=== PATIENT | female | born 1990 | race Two or more races ===

== ENCOUNTER 2019-07-12 08:47 | Emergency (ER) | payer MEDICAID ==
[~2019-07-12] VITALS: Ht 167.6 cm; Wt 129.0 kg
--- NOTE | 2019-07-12 09:15 | NUR ---
Patient from triage ambulatory with steady gait, reports onset of abdominal pain around 0800 sharp intermittent since this morning. Pain was so bad made her cry. Denies any discharge. AA&O with clear speech. Denies N/V/D
[2019-07-12] MEDS ORDERED: ONDANSETRON 2MG/ML, 2ML IVPush ONE (09:30)
[2019-07-12] MEDS ORDERED: SODIUM CHLORIDE FLUSH 10ML SYR IVF ONE (09:30)
[2019-07-12 09:44] LABS: BASOPHILS # (AUTO) 0.02 x10^3/uL (0-0.1); BASOPHILS % (AUTO) 0 % (0-1); EOSINOPHILS # (AUTO) 0.13 x10^3/uL (0-0.4); EOSINOPHILS % (AUTO) 2 % (1-7); LYMPHOCYTES # (AUTO) 1.77 x10^3/uL (1-3.4); LYMPHOCYTES % (AUTO) 19 % (22-44); MD NO; MEAN CORPUSCULAR HEMOGLOBIN 31.3 pg (27.0-34.8); MEAN CORPUSCULAR HGB CONC 33.6 g/dL (32.4-35.8); MEAN PLATELET VOLUME 9.7 fL (7.4-10.4); MONOCYTES % (AUTO) 6 % (2-9); NEUTROPHILS % (AUTO) 74 % (42-75); PLATELET COUNT 213 x10^3/uL (130-400); RED BLOOD COUNT 4.49 x10^6/uL (3.82-5.3); RED CELL DISTRIBUTION WIDTH 12.9 % (9.6-15.2)
--- NOTE | 2019-07-12 09:50 | NUR ---
Patient refused Zofran and IV access, ERP aware
[2019-07-12 09:55] LABS: ANION GAP 6 mmol/L (5-15); CALCIUM 8.4 mg/dL (8.5-10.1); CHLORIDE 110 mmol/L (98-107); CREATININE 1.01 mg/dL (0.55-1.02)
[2019-07-12 09:56] LABS: ALBUMIN 3.4 g/dL (3.4-5.0)
[2019-07-12 10:50] LABS: MICROSCOPIC INDICATED
--- NOTE | 2019-07-12 11:09 | NUR ---
Resting on gurney watching TV reports pain has improved. pending US
[2019-07-12 11:10] VITALS: BP 115/64
--- NOTE | 2019-07-12 12:20 | NUR ---
Informed patient need for a straight cath, educated patient on procedure and patient refused provider aware.
[2019-07-12 12:43] LABS: CLUE CELLS PRESENT (NONE SEEN); WET PREP WBCS FEW (FEW)
== END 2019-07-12 13:34 | disposition home or self-care (01) ==
LOC: ED 09:03
DX: A59.01 Trichomonal vulvovaginitis (principal); R10.30 Lower abdominal pain, unspecified
CPT/HCPCS: 36415; 76830; 80048; 81001; 82040; 84703; 85025; 87086; 87210; 87491; 87591; 87808; 99284

== ENCOUNTER 2019-07-28 08:53 | Emergency (ER) | payer MEDICAID ==
[~2019-07-28] VITALS: Ht 167.6 cm; Wt 127.1 kg
[2019-07-28 08:59] VITALS: BP 129/70
--- NOTE | 2019-07-28 09:13 | NUR ---
TWO DAYS OF LEFT SIDE SORE THROAT. DENIES ANY OTHER SYMPTOMS.
--- NOTE | 2019-07-28 10:16 | NUR ---
DC INSTRUCTIONS REVIEWED
== END 2019-07-28 10:20 | disposition home or self-care (01) ==
LOC: ED 09:47
DX: J02.8 Acute pharyngitis due to other specified organisms (principal); B97.89 Other viral agents as the cause of diseases classified elsewhere
CPT/HCPCS: 87081; 87880; 99283